=== PATIENT | female | born 1975 | race Caucasian/White ===

== ENCOUNTER → 2017-05-26 | Outpatient (CLI) | payer OTHER ==
[2017-05-26 13:10] LABS: BASO % 0.4 %; BASO ABS # 0.01 K/uL (0-0.2); COMPLETE YES; EOS % 4.3 %; HEMATOCRIT 40.6 % (37-47); LYMPH % 6.7 %; LYMPH ABS # 0.17 K/uL (1.2-3.4); MEAN CELL VOLUME 90.6 fL (80-100); MEAN CORPUSCULAR HEMOGLOBIN 29.2 pg (25-34); MEAN CORPUSCULAR HGB CONC 32.3 g/dl (32-36); MEAN PLATELET VOLUME 9.2 fL (7.4-10.4); MONO % 11.5 %; NEUT % 77.1 %; PLATELET COUNT 251 K/uL (130-400); RED BLOOD COUNT 4.48 M/uL (4.2-5.4); WHITE BLOOD COUNT 2.53 K/uL (4.8-10.8)
[2017-05-26 13:47] LABS: ALT/SGPT 25 U/L (12-78); AST/SGOT 15 U/L (15-37); BLOOD UREA NITROGEN 16 mg/dl (7-18); BUN/CREATININE RATIO 22.7 (10-20); CARBON DIOXIDE 26 mmol/L (21-32); CHLORIDE 106 mmol/L (98-107); GLUCOSE 90 mg/dl (70-99); POTASSIUM 3.8 mmol/L (3.5-5.1); SODIUM 141 mmol/L (136-145)
[2017-05-26 13:57] LABS: ALB/GLOB RATIO 1.4 (0.9-2); ALKALINE PHOSPHATASE 59 U/L (45-117)
== END | disposition home or self-care (01) ==
LOC: C.LAB 12:08
PROVIDERS: ATTEND Nurse Practitioner
DX: G35 Multiple sclerosis (principal); Z51.81 Encounter for therapeutic drug level monitoring; Z79.899 Other long term (current) drug therapy

== ENCOUNTER → 2017-09-05 | Outpatient (CLI) | payer OTHER ==
[~2017-09-05] MED LIST: GADAVIST IV PRN
--- NOTE | 2017-09-05 18:44 | DIAGNOSTIC IMAGING REPORT ---
MRI CERVICAL SPINE COMBO CLINICAL HISTORY: MS TECHNIQUE: Sagittal and axial T1, T2 and STIR images were obtained. Imaging was performed before and after the administration of 5.5 cc of intravenous Gadavist COMPARISON STUDY: 10/19/2015 There are no suspicious areas of marrow replacement. No intrinsic cervical cord lesions are visualized. C2-3: There is no evidence of disc bulge or focal herniation. There is no spinal or foraminal stenosis. C3-4: There is no evidence of disc bulge or focal herniation. There is no spinal or foraminal stenosis. C4-5: There are no disc bulges or focal herniations. There is no spinal or foraminal stenosis. C5-6 :There is a mild circumferential disc bulge. There is no significant spinal or foraminal stenosis C6-7: There is no evidence of disc bulge or focal herniation. There is no evidence of spinal or foraminal stenosis. C7-T1: There is no evidence of disc bulge or focal herniation. There is no evidence of spinal or foraminal stenosis. Postcontrast images reveal no pathologically enhancing lesions. IMPRESSION:Minor disc bulge at the C5-6 level. Otherwise normal MRI of the cervical spine. Electronically signed by: Dereje Jaquez M.D. 09/05/2017 6:43 PM Dictated Date/Time: 09/05/2017 6:40 PM
--- NOTE | 2017-09-05 18:46 | DIAGNOSTIC IMAGING REPORT ---
MRI THORACIC SPINE COMBO CLINICAL HISTORY: Multiple sclerosis. COMPARISON STUDY: MRI of the thoracic spine dated 10/19/15. TECHNIQUE: MRI of the thoracic spine is performed utilizing various T1 and T2-weighted sequences in the axial and sagittal planes. Contrast-enhanced sequences are acquired following the IV administration of 5.5 cc of Gadavist. FINDINGS: Vertebral body height and alignment are maintained throughout the thoracic spine. Normal marrow signal intensity is preserved throughout the visualized bony structures. The transverse and spinous processes appear intact. No destructive osseous lesion is seen. The intervertebral discs are normal in height and signal intensity. Minimal disc bulge is suggested at T9-T10. No disc herniation is seen. The central canal is widely patent. The neural foramina are clear at all levels. The thoracic spinal cord is normal in morphology and signal intensity. There is no abnormal enhancement identified on the postcontrast images. The conus medullaris terminates at the level of L1. The paraspinous soft tissues are normal in appearance. The lung parenchyma is clear as visualized but not well assessed by MRI. IMPRESSION: Unremarkable contrast-enhanced MRI of the thoracic spine. No significant change from 10/19/2015. Electronically signed by: Kaushal Lopez M.D. 09/05/2017 6:45 PM Dictated Date/Time: 09/05/2017 6:40 PM
--- NOTE | 2017-09-05 18:49 | DIAGNOSTIC IMAGING REPORT ---
MRI OF THE BRAIN WITHOUT AND WITH IV CONTRAST CLINICAL HISTORY: Multiple sclerosis LEFT SHOULDER NUMBNESS COMPARISON STUDY: 10/19/2015 TECHNIQUE: MRI of the brain was performed from the vertex to the skull base utilizing various T1 and T2 weighted sequences. Following the IV administration of 5.5 mL of Gadavist contrast, additional enhanced images were obtained. FINDINGS: Sagittal T1, axial diffusion, proton density and T2 weighted axial, coronal FLAIR, and pre and post axial T1-weighted images were acquired. These were supplemented with post gadolinium coronal T1 weighted images. No intra or extra-axial mass lesions are visualized. Axial diffusion-weighted images reveal no evidence of acute or subacute infarction. There is no evidence of ventricular dilatation. Proton density T2-weighted and FLAIR images reveal multiple foci of abnormal increased T2 signal. Several these again an orientation perpendicular to the ependymal surface the ventricles. The distribution remains consistent with the clinical diagnosis of multiple sclerosis. The lesions remain similar in size and number. There are no abnormal flow voids. There is no evidence of pathologic enhancement. There are inflammatory changes in the right frontal sinus IMPRESSION: 1. No significant change from the preceding study 2. Multifocal white matter lesions consistent with the clinical history of multiple sclerosis. There is no evidence of pathologic enhancement Electronically signed by: Dereje Jaquez M.D. 09/05/2017 6:48 PM Dictated Date/Time: 09/05/2017 6:44 PM
== END | disposition home or self-care (01) ==
LOC: C.MRI 15:57
PROVIDERS: ATTEND Psychiatry & Neurology Neurology
DX: G35 Multiple sclerosis (principal); Z79.899 Other long term (current) drug therapy